=== PATIENT | female | born 1955 | race Caucasian/White ===

== ENCOUNTER → 2022-10-12 14:22 | Outpatient (CLI) | payer MEDICARE, OTHER, SELFPAY ==
--- NOTE | 2022-10-12 14:26 | DI.MG.S_ITS ---
BILATERAL DIGITAL SCREENING MAMMOGRAM 3D/2D WITH CAD WITH AUGMENTATION: 10/12/2022 CLINICAL: Routine screening. Comparison is made to exams dated: 08/19/2020 mammogram, 03/10/2019 mammogram, and 03/15/2016 mammogram - [facility]. There are scattered areas of fibroglandular density in both breasts (category b / 25%-50% glandular tissue). Current study was also evaluated with a Computer Aided Detection (CAD) system. Bilateral breast implants are stable. No significant masses, calcifications, or other findings are seen in either breast. There has been no significant interval change. IMPRESSION: NEGATIVE There is no mammographic evidence of malignancy. A 1 year screening mammogram is recommended. Based on the Tyrer Cuzick model (a risk assessment model) the patient's lifetime risk is 6.0% and her 10 year risk is 3.3%. According to the ACR, ACS, and NCCN guidelines, an annual breast MRI exam along with mammogram is recommended if the patient's lifetime risk is 20% or greater. This exam was interpreted at Station ID: [id number]. NOTE: For mammograms, a report in lay terms will be sent to the patient. Approximately 15% of breast malignancies will not be visualized mammographically. In the management of a palpable breast mass, a negative mammogram must not discourage biopsy of a clinically suspicious lesion. Electronically Signed By: Ana [email or web address]/[email or web address]:10/12/2022 17:19:33 letter sent: Normal Exam ACR BI-RADS Category 1: Negative 3341F
== END ==
PROVIDERS: PCP Family Medicine; Referring Provider Family Medicine; Visit Provider Family Medicine
DX: Z12.31 Encounter for screening mammogram for malignant neoplasm of breast (principal)
CPT/HCPCS: 77063; 77067

== ENCOUNTER → 2023-09-05 11:28 | Outpatient (CLI) | payer MEDICARE, OTHER, SELFPAY ==
--- NOTE | 2023-09-05 11:31 | DI.RAD.S_ITS ---
Bone Density Report Name: KASIE RODRIGUEZ Age: 67 Sex: Female Ethnicity: White Date of : 1955 Indication: postmenopausal; screening for osteoporosis; Referring Provider: CHRISTOPHE THOMAS Study: Bone densitometry was performed. Exam Date: September 05, 2023 Accession number: [id number] Bone Density: Region BMD T-score Z-score Classification AP Spine(L1-L4) 0.772 -2.5 -0.4 Osteoporosis Femoral Neck (Left) 0.699 -1.4 0.4 Osteopenia Total Hip (Left) 0.878 -0.5 1.0 Normal Femoral Neck (Right) 0.729 -1.1 0.7 Osteopenia Total Hip (Right) 0.901 -0.3 1.1 Normal Total Hip Mean 0.890 -0.4 1.1 Normal World Health Organization criteria for BMD impression classify patients as: Normal (T-score at or above -1.0), Osteopenia (T-score between -1.0 and -2.5), or Osteoporosis (T-score at or below -2.5). 10-year Fracture Risk: FRAX not reported because: Some T-score for Spine Total or Hip Total or Femoral Neck at or below -2.5 Impression: The patient has osteoporosis, based on the Total Spine T-score. Discussion: INCREASED RISK OF FRACTURE. BONE DENSITY IS UNDESIRABLY LOW AT ONE OR MORE SKELETAL SITES, CONSISTENT WITH POSTMENOPAUSAL OSTEOPOROSIS. This patient's lowest T-score meets the World Health Organization's (WHO) criteria for osteoporosis at one or more sites (T-score -2.5 or below). In untreated patients, the risk of osteoporotic fracture increases approximately two-fold for each 1.0 SD decrease in T-score. Low bone density is not the only risk factor for fracture; also consider factors such as patient's age, frailty or poor health, risk of falling, risk of injury, previous osteoporotic fracture, family history of osteoporosis, cigarette smoking, low body weight, etc. Not everyone with low bone mineral density has osteoporosis; osteomalacia and other metabolic bone disorders should also be considered. Patients who have osteoporosis should be evaluated for specific diseases and conditions (secondary causes) that may cause or contribute to bone loss. The [place] [employer]ocrinologists (AACE) and National Osteoporosis Foundation (NOF) recommend pharmacologic intervention for all postmenopausal women whose T-score is in this range. The patient should follow a healthful lifestyle (good nutrition with adequate calcium and vitamin D, and appropriate weight-bearing exercise). Follow-Up: Consider a repeat BMD and Vertebral Fracture Assessment (VFA) exam in 2 years or sooner if medically necessary, to reassess this patient's status. Reported by: LADI BHATT M.D. on 09/05/2023 12:42:00 PM.
== END ==
PROVIDERS: PCP Registered Nurse; Referring Provider Registered Nurse; Visit Provider Registered Nurse
DX: M81.0 Age-related osteoporosis without current pathological fracture (principal); Z13.820 Encounter for screening for osteoporosis; Z78.0 Asymptomatic menopausal state
CPT/HCPCS: 77080

== ENCOUNTER → 2023-10-14 10:44 | Outpatient (CLI) | payer MEDICARE, OTHER, SELFPAY ==
--- NOTE | 2023-10-14 10:45 | DI.MG.S_ITS ---
BILATERAL DIGITAL SCREENING MAMMOGRAM 3D/2D WITH CAD WITH AUGMENTATION: 10/14/2023 CLINICAL: Routine screening. Comparison is made to exams dated: 10/12/2022 mammogram - [facility], 08/19/2020 mammogram, and 03/10/2019 mammogram - [facility]. There are scattered areas of fibroglandular density in both breasts (category b / 25%-50% glandular tissue). Current study was also evaluated with a Computer Aided Detection (CAD) system. Bilateral breast implants are stable. No significant masses, calcifications, or other findings are seen in either breast. There has been no significant interval change. IMPRESSION: NEGATIVE There is no mammographic evidence of malignancy. A 1 year screening mammogram is recommended. Based on the Tyrer Cuzick model (a risk assessment model) the patient's lifetime risk is 5.7% and her 10 year risk is 3.4%. According to the ACR, ACS, and NCCN guidelines, an annual breast MRI exam along with mammogram is recommended if the patient's lifetime risk is 20% or greater. This exam was interpreted at Station ID: [id number]. NOTE: For mammograms, a report in lay terms will be sent to the patient. Approximately 15% of breast malignancies will not be visualized mammographically. In the management of a palpable breast mass, a negative mammogram must not discourage biopsy of a clinically suspicious lesion. Electronically Signed By: Allen [email or web address]/[email or web address]:10/14/2023 12:04:43 letter sent: Normal Exam ACR BI-RADS Category 1: Negative 3341F
== END ==
LOC: MAMMO 10:44
PROVIDERS: PCP Registered Nurse; Referring Provider Registered Nurse; Visit Provider Registered Nurse
DX: Z12.31 Encounter for screening mammogram for malignant neoplasm of breast (principal); R92.323 Mammographic fibroglandular density, bilateral breasts
CPT/HCPCS: 77063; 77067

== ENCOUNTER → 2023-11-08 12:33 | Outpatient (CLI) | payer MEDICARE, OTHER, SELFPAY ==
--- NOTE | 2023-11-08 12:35 | DI.CT.S_ITS ---
PROCEDURE: CT ABDOMEN PELVIS W CON INDICATIONS: DIVERTICULITIS TECHNIQUE: After the administration of intravenous contrast, axial sections acquired from the lung bases to the pubic symphysis. Coronal and sagittal reformats were performed. For radiation dose reduction, the following was used: automated exposure control, adjustment of mA and/or kV according to patient size. COMPARISON: None. FINDINGS: Image quality: Diagnostic. Lower Chest: No significant findings. Peripherally calcified bilateral breast implants. ABDOMEN: Liver: No solid mass. Gallbladder: No radiopaque gallstones or wall thickening. Biliary ducts: No biliary dilation. Pancreas: No ductal dilation. Spleen: Size is within normal limits. Adrenal Glands: No adrenal nodules. Kidneys and Ureters: No hydronephrosis. No solid mass. No complex renal cystic lesion which requires follow up. Stomach and Bowel: Normal colonic caliber, without significant wall thickening. Peritoneum: No abnormal intraperitoneal fluid. No free air. Ventral Wall: No significant ventral hernia. Abdominal Nodes: No retroperitoneal or mesenteric adenopathy by size criteria. Vessels: Aorta and inferior vena cava are normal in size. PELVIS: Pelvic Organs: Unremarkable. Bladder: No bladder wall thickening, accounting for underdistention. Pelvic Nodes: No enlarged lymph nodes. Miscellaneous: No inguinal hernias are seen. Normal appendix found right lower quadrant. Acute diverticulitis without peridiverticular abscess, [id number] in severity at the proximal sigmoid colon. This is best seen centered on series 2, image 65 and immediately adjacent sigmoid colon where extensive diverticulosis is present. Bones: No aggressive osseous abnormality. IMPRESSION: Normal appendix found. [id number] acute diverticulitis proximal sigmoid colon with additional adjacent prominent diverticulosis involving the proximal and middle 3rd of the sigmoid colon. No peridiverticular abscess. Dictated by: Cain Hager M.D. on 11/08/2023 at 13:58 Approved by: Cain Hager M.D. on 11/08/2023 at 14:00
== END ==
PROVIDERS: PCP Registered Nurse; Referring Provider Registered Nurse; Visit Provider Registered Nurse
DX: K57.32 Diverticulitis of large intestine without perforation or abscess without bleeding (principal)
CPT/HCPCS: 74177; Q9967

== ENCOUNTER → 2024-06-25 11:01 | Outpatient (CLI) | payer MEDICARE, OTHER, SELFPAY ==
--- NOTE | 2024-06-25 11:05 | DI.MRI.S_ITS ---
PROCEDURE: MR ANKLE LT WO CON INDICATIONS: Pain in both heels TECHNIQUE: Noncontrast sagittal T1 spin echo and T2 fast spin echo with fat saturation, axial proton density fast spin echo and T2 fast spin echo with fat saturation, coronal T1 spin echo and T2 fast spin echo with fat saturation through the ankle/hindfoot. COMPARISON: [facility] [place], CR, XR ANKLE 1 OR 2 VIEWS WEIGHT BEARING BILATERAL, 09/10/2023, 11:06. FINDINGS: Image quality: Excellent. Bones and joints: No acute trabecular bone injury or fracture. No hindfoot coalitions. No osteochondral injuries of the talar dome. Small nonedematous ossification dorsal to the talonavicular joint is likely the sequela of a remote prior injury. Small nonedematous ossifications adjacent to the medial malleolus also likely sequela of remote prior injuries. Nonedematous posterior calcaneal enthesophyte is present. Medial structures: Remote prior low-grade sprain of the deep deltoid ligament fibers. The posterior tibialis and flexor digitorum longus demonstrate moderate tenosynovitis. The flexor hallucis longus tendon is intact. The posterior tibial neurovascular bundle appears normal within the tarsal tunnel, without extrinsic mass effect. Lateral structures: Remote prior high-grade versus full-thickness tear of the anterior talofibular ligament. The calcaneofibular and posterior talofibular ligaments are intact. The anterior and posterior tibiofibular ligaments are intact. 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 Moderate peroneus brevis and longus tendinosis and mild tenosynovitis. The sinus tarsi demonstrates normal fatty signal. Anterior structures: The tibialis anterior, extensor hallucis longus, and extensor digitorum longus tendons appear intact. Remote prior osseous avulsion at the talar attachment of the dorsal talonavicular joint. Posterior and plantar structures: Achilles tendon demonstrates mild tendinosis. The proximal plantar fascia is thickened without surrounding edema. No abductor digiti minimi muscle atrophy to suggest Magallon neuropathy. IMPRESSION: 1. 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 Moderate peroneus brevis and longus tendinosis and mild tenosynovitis. 2. Remote prior grade 2-3 sprain of the anterior talofibular ligament. 3. Moderate posterior tibialis and flexor digitorum longus tenosynovitis. 4. Remote prior grade 1 sprain of the deltoid ligament. 5. Mild chronic proximal plantar fasciitis without acute tearing. 6. Mild Achilles tendinosis. Approved by: Josh Sarkar M.D. on 06/29/2024 at 10:48
--- NOTE | 2024-06-25 11:05 | DI.MRI.S_ITS ---
PROCEDURE: MR ANKLE RT WO CON INDICATIONS: Pain in both heels TECHNIQUE: Noncontrast sagittal T1 spin echo and T2 fast spin echo with fat saturation, axial proton density fast spin echo and T2 fast spin echo with fat saturation, coronal T1 spin echo and T2 fast spin echo with fat saturation through the ankle/hindfoot. COMPARISON: [facility] [place], CR, XR ANKLE 1 OR 2 VIEWS WEIGHT BEARING BILATERAL, 09/10/2023, 11:06. FINDINGS: Image quality: Excellent. Bones and joints: No acute trabecular bone injury or fracture. No hindfoot coalitions. No osteochondral injuries of the talar dome. Mild degenerative spurring at the dorsal aspect of the talonavicular joint. Nonedematous posterior calcaneal enthesophyte. Mild osseous edema at the plantar calcaneus adjacent to the plantar fascia origin. Medial structures: The deltoid ligament and the spring ligament complex are intact. Moderate posterior tibialis tenosynovitis. The flexor digitorum longus and flexor hallucis longus tendons are intact. The posterior tibial neurovascular bundle appears normal within the tarsal tunnel, without extrinsic mass effect. Lateral structures: Anterior talofibular ligament is not well seen as likely chronically torn. The calcaneofibular and posterior talofibular ligaments are intact. The anterior and posterior tibiofibular ligaments are intact. 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 Moderate peroneus longus tendinosis and tenosynovitis. Ganglion cyst extending superiorly from the lateral sinus tarsi measures approximately 14 x 9 x 11 mm. Anterior structures: The tibialis anterior, extensor hallucis longus, and extensor digitorum longus tendons appear intact. Posterior and plantar structures: Mild Achilles tendinosis. There is thickening of the proximal plantar fascia with surrounding soft tissue and osseous. There is mildly increased T2-weighted signal within the fascia. No disproportionate abductor digiti minimi muscle atrophy to suggest Magallon neuropathy. IMPRESSION: 1. Moderate acute on chronic proximal plantar fasciitis with surrounding soft tissue and osseous edema. Possible low-grade partial tearing at the plantar fascia origin although the bulk of the fibers are intact. 2. 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 Moderate peroneus brevis and longus tendinosis and tenosynovitis. 3. Chronic complete tearing of the anterior talofibular ligament. 4. Moderate posterior tibialis tenosynovitis. 5. Mild Achilles tendinosis. Approved by: Josh Sarkar M.D. on 06/29/2024 at 10:48
== END ==
PROVIDERS: PCP Registered Nurse; Referring Provider Family Medicine Sports Medicine; Visit Provider Family Medicine Sports Medicine
DX: S93.491A Sprain of other ligament of right ankle, initial encounter (principal); S93.492A Sprain of other ligament of left ankle, initial encounter; S93.422A Sprain of deltoid ligament of left ankle, initial encounter; M65.972 Unspecified synovitis and tenosynovitis, left ankle and foot; M65.971 Unspecified synovitis and tenosynovitis, right ankle and foot; M79.671 Pain in right foot; M79.672 Pain in left foot; M72.2 Plantar fascial fibromatosis; M67.972 Unspecified disorder of synovium and tendon, left ankle and foot; M67.971 Unspecified disorder of synovium and tendon, right ankle and foot
CPT/HCPCS: 73721